=== PATIENT | female | born 1975 | race Caucasian/White ===

== ENCOUNTER 2025-05-09 09:37 | Emergency (ER) | payer OTHER ==
[2025-05-09 10:00] VITALS: TEMP 97.8
--- NOTE | 2025-05-09 10:03 | ERPHSYRPT ---
- History of Present Illness Time Seen by Provider: 05/09/25 09:50 Historian: patient Exam Limitations: no limitations Physician History: This is an obese 49-year-old white female patient presents to the emergency department secondary to chest pain, shortness of breath, cough and leg pain. In October 2020, patient was diagnosed with COVID induced DVTs. She had been on Eliquis until October 2024 when she ran out of her medication. Patient did not live in this area. Patient had financial difficulties as well and lost her health insurance. Patient moved to this area in October 2024, still in financial difficulties and ultimately received health insurance in March 2025. Will she was going to go to her primary care provider in the [place] area, however, her car is not working and the weather is going to turn bad. So she came to the emergency department. Timing/Duration: week(s) (2) Quality: aching Location: substernal, central Chest Pain Radiation: no radiation Severity of Pain-Max: mild Severity of Pain-Current: mild Associated Symptoms: shortness of breath, cough, No nausea, No vomiting, No abdominal pain Nitro Today/Relief: no nitro taken today Aspirin Treatment Today: 81 mg x 4, provided by ED Allergies/Adverse Reactions: No Known Drug Allergies Allergy (Unverified 05/09/25 09:38) Home Medications: Albuterol 8 gm Mdi Hfa [Ventolin Hfa MDI] 8 gm IH Q6HPRN PRN 05/09/25 [History] Cetirizine HCl [Zyrtec] 1 ea DAILY 05/09/25 [History] Travel Risk - International Travel Have you traveled outside of the country in past 3 weeks: No - Emerging Infectious Disease Are you exhibiting symptoms associated with any current EIDs: Yes Symptoms: Cough: New Onset, Shortness of Breath - Review of Systems Constitutional: No Symptoms Eyes: No Symptoms Ears, Nose, & Throat: No Symptoms Respiratory: Cough, Dyspnea on Exertion (CARTER) Cardiac: Chest Pain Abdominal/Gastrointestinal: No Symptoms Genitourinary Symptoms: No Symptoms Musculoskeletal: No Symptoms Skin: No Symptoms Neurological: No Symptoms Psychological: No Symptoms Endocrine: No Symptoms Hematologic/Lymphatic: No Symptoms Immunological/Allergic: No Symptoms All Other Systems: Reviewed and Negative - Past Medical History Pertinent Past Medical History: Yes - Nursing Vital Signs Nursing Vital Signs: Initial Vital Signs Pulse Rate 64 05/09/25 09:44 Respiratory Rate 22 05/09/25 09:44 Blood Pressure 119/64 05/09/25 09:44 O2 Sat by Pulse Oximetry 95 05/09/25 09:44 Pain Scale Pain Intensity 8 - Physical Exam General Appearance: no apparent distress, alert, anxiety, obese Eye Exam: PERRL/EOMI, eyes nml inspection Ears, Nose, Throat Exam: normal ENT inspection, moist mucous membranes Neck Exam: normal inspection, non-tender, supple, full range of motion Respiratory Exam: normal breath sounds, lungs clear, airway intact, No chest tenderness, No respiratory distress Cardiovascular Exam: regular rate/rhythm, normal heart sounds, normal peripheral pulses Gastrointestinal/Abdomen Exam: soft, normal bowel sounds, No tenderness Pelvic Exam: not done Rectal Exam: not done Back Exam: normal inspection, normal range of motion, No CVA tenderness, No vertebral tenderness Extremity Exam: normal inspection, normal range of motion, pelvis stable Neurologic Exam: alert, oriented x 3, cooperative, fire alarm inspector II-XII nml as tested, nml cerebellar function, nml station & gait, sensation nml Skin Exam: normal color, warm, dry Lymphatic Exam: No adenopathy SpO2 Interpretation: normal O2 Delivery: Room Air - Course Nursing assessment & vital signs reviewed: Yes EKG Interpreted by Me: RATE (70), Sinus Rhythm, NORMAL AXIS, NORMAL INTERVALS, NORMAL QRS, Other (CBC is 450. No acute ischemia on this twelve-lead EKG.) Ordered Tests: Active Orders 24 hr Category Date Time Status EKG-ER Only STAT Care 05/09/25 09:56 Completed IV Insertion STAT Care 05/09/25 09:56 Active Pulse Oximetry (ED) STAT Care 05/09/25 09:56 Active CHEST WITH CONTRAST [CT] Stat Exams 05/09/25 09:55 Completed VENOUS BILATERAL EXTREMITY [US] Stat Exams 05/09/25 09:57 Completed BLOOD CULTURE Stat Lab 05/09/25 10:10 Ordered CBC W DIFF Stat Lab 05/09/25 10:00 Completed CMP Stat Lab 05/09/25 10:00 Completed Lactic Acid Stat Lab 05/09/25 10:20 Completed MAGNESIUM Stat Lab 05/09/25 10:00 Completed NT PRO BNPII Stat Lab 05/09/25 10:00 Completed TROPONIN Q4H Lab 05/09/25 10:00 Completed TROPONIN Q4H Lab 05/09/25 14:00 Ordered TROPONIN Q4H Lab 05/09/25 18:00 Ordered Medication Summary Generic Name Dose Route Start Last Admin Trade Name Domenico PRN Reason Stop Dose Admin Sodium Chloride 1,000 mls @ 100 mls/hr 05/09/25 10:00 05/09/25 10:13 Sodium Chloride 0.9% 1000 Ml IV 06/08/25 09:59 100 mls/hr .Q10H ARIAN Administration Lab/Rad Data: Laboratory Result Diagrams 05/09/25 10:00 05/09/25 10:00 Laboratory Results 05/09/25 05/09/25 05/09/25 Range/Units 10:20 10:10 10:00 WBC (3.98-10.04) x10^3/uL RBC (3.93-5.22) x10^6/uL Hgb (11.2-15.7) g/dL Hct (34.1-44.9) % MCV (79.4-94.8) fL MCH (25.6-32.2) pg MCHC (32.2-35.5) g/dL RDW (11.7-14.4) % Plt Count (182-369) x10^3/uL MPV (9.4-12.3) fL Gran % (34.0-71.1) % Immature Gran % (Auto) (0.001-0.429) % Nucleat RBC Rel Count (0.00-0.2) % Eos # (Auto) (0.04-0.36) x10^3/uL Immature Gran # (Auto) (0.001-0.031) x10^3u/L Absolute Lymphs (auto) (1.18-3.74) x10^3/uL Absolute Monos (auto) (0.24-0.86) x10^3/uL Absolute Nucleated RBC (0.00-0.012) x10^3u/L Lymphocytes % (19.3-51.7) % Monocytes % (4.7-12.5) % Eosinophils % (0.7-5.8) % Basophils % (0.1-1.2) % Absolute Granulocytes (1.56-6.13) x10^3/uL Basophils # (0.01-0.08) x10^3/uL Sodium (135-145) mmol/L Potassium (3.5-5.1) mmol/L Chloride (98-107) mmol/L Carbon Dioxide (22-30) mmol/L Anion Gap (5-15) MEQ/L BUN (7-17) mg/dL Creatinine (0.52-1.04) mg/dL Estimated GFR ML/MIN Glucose (74-106) mg/dL Lactic Acid 1.8 (0.4-2.0) Calcium (8.4-10.2) mg/dL Magnesium (1.6-2.3) mg/dL Total Bilirubin (0.2-1.3) mg/dL AST (14-36) U/L ALT (0-35) U/L Alkaline Phosphatase (38-126) U/L Troponin I < 0.012 (0.000-0.033) ng/mL NT-Pro-B Natriuret Pep (<300) pg/mL Serum Total Protein (6.3-8.2) g/dL Albumin (3.5-5.0) g/dL Influenza Type A Ag NEGATIVE (NEGATIVE) Influenza Type B Ag NEGATIVE (NEGATIVE) RSV (PCR) NEGATIVE (NEGATIVE) SARS-CoV-2 (PCR) NEGATIVE (NEGATIVE) 05/09/25 05/09/25 Range/Units 10:00 10:00 WBC 8.1 (3.98-10.04) x10^3/uL RBC 4.72 (3.93-5.22) x10^6/uL Hgb 13.4 (11.2-15.7) g/dL Hct 40.9 (34.1-44.9) % MCV 86.7 (79.4-94.8) fL MCH 28.4 (25.6-32.2) pg MCHC 32.8 (32.2-35.5) g/dL RDW 13.4 (11.7-14.4) % Plt Count 245 (182-369) x10^3/uL MPV 11.1 (9.4-12.3) fL Gran % 60.1 (34.0-71.1) % Immature Gran % (Auto) 0.2 (0.001-0.429) % Nucleat RBC Rel Count 0.0 (0.00-0.2) % Eos # (Auto) 0.23 (0.04-0.36) x10^3/uL Immature Gran # (Auto) 0.02 (0.001-0.031) x10^3u/L Absolute Lymphs (auto) 2.31 (1.18-3.74) x10^3/uL Absolute Monos (auto) 0.64 (0.24-0.86) x10^3/uL Absolute Nucleated RBC 0.00 (0.00-0.012) x10^3u/L Lymphocytes % 28.4 (19.3-51.7) % Monocytes % 7.9 (4.7-12.5) % Eosinophils % 2.8 (0.7-5.8) % Basophils % 0.6 (0.1-1.2) % Absolute Granulocytes 4.88 (1.56-6.13) x10^3/uL Basophils # 0.05 (0.01-0.08) x10^3/uL Sodium 136 (135-145) mmol/L Potassium 4.2 (3.5-5.1) mmol/L Chloride 103 (98-107) mmol/L Carbon Dioxide 23 (22-30) mmol/L Anion Gap 13.7 (5-15) MEQ/L BUN 12 (7-17) mg/dL Creatinine 0.70 (0.52-1.04) mg/dL Estimated GFR 104.7 ML/MIN Glucose 99 (74-106) mg/dL Lactic Acid (0.4-2.0) Calcium 9.3 (8.4-10.2) mg/dL Magnesium 1.9 (1.6-2.3) mg/dL Total Bilirubin 0.60 (0.2-1.3) mg/dL AST 24 (14-36) U/L ALT 18 (0-35) U/L Alkaline Phosphatase 83 (38-126) U/L Troponin I (0.000-0.033) ng/mL NT-Pro-B Natriuret Pep < 20.0 (<300) pg/mL Serum Total Protein 7.6 (6.3-8.2) g/dL Albumin 4.3 (3.5-5.0) g/dL Influenza Type A Ag (NEGATIVE) Influenza Type B Ag (NEGATIVE) RSV (PCR) (NEGATIVE) SARS-CoV-2 (PCR) (NEGATIVE) - Progress Progress: improved, re-examined Air Movement: good Progress Note: 05/09/25 10:03 My medical decision making and the assignment of moderate to high complexity of this patient's medical issue today is based on review of the patient's past medical history, review the patient's medication list, reviewed patient drug allergy list, history present illness and physical findings on examination. They workup in this patient includes placement of intravenous line, infusion of low rate crystalloid, CBC, CMP, magnesium level, troponin level, BNP level, twelve-lead EKG, viral swabs, bilateral lower extremity venous Doppler, CT scan of the chest with contrast. Differential diagnose include but is not limited to viral illness, pulmonary infiltrate, pulmonary embolus, myocardial infarction, electrolyte abnormalities, arrhythmia, DVT 05/09/25 11:00 Scale Tank Operator/technologist reported to me the preliminary report of the patient's bilateral lower extremity venous Doppler study. There is no evidence of DVTs in either lower extremity 05/09/25 11:01 I interpreted the patient's laboratory data results. Based on laboratory data results there are no acute, emergent medical issues. 05/09/25 12:[address] scan of the chest with contrast was interpreted by the radiologist and I reviewed the impression. The impression states negative for pulmonary embolus. Incidental cardiomegaly with old granulomatous disease. Remaining CT scan of the chest with contrast normal Blood Culture(s) Obtained: Yes Counseled pt/family regarding: lab results, diagnosis, need for follow-up, rad results Medical Desision Making - Diagnostic Testing Diagnostic test were ordered, analyzed, and reviewed by me: Yes Radiological Interpretation: Reviewed by me, Teleradiologist Report - Risk of complications Low Risk: Low risk of morbidity from additional dx testing or treatment - Departure Departure Disposition: Home Clinical Impression: Nonspecific chest pain Condition: Stable Critical Care Time: No Referrals: DILCIA MORSE [Primary Care Provider, [facility]] - Follow up/PCP as directed Additional Instructions: Drink plain fluids. Take all your medications as prescribed. Call your primary care provider today, to make arrangements for follow-up appointment to be seen in the next 3 to 5 days.
[2025-05-09 10:21] LABS: BASOPHIL % 0.6 % (0.1-1.2); Basophil (Absolute #) 0.05 x10^3/uL (0.01-0.08); Eosinophil (Absolute #) 0.23 x10^3/uL (0.04-0.36); Hematocrit 40.9 % (34.1-44.9); Hemoglobin 13.4 g/dL (11.2-15.7); IMMATURE GRAN # 0.02 x10^3u/L (0.001-0.031); IMMATURE GRAN % 0.2 % (0.001-0.429); Lymphocyte (Absolute #) 2.31 x10^3/uL (1.18-3.74); Mean Corpuscular Hemoglobin 28.4 pg (25.6-32.2); Mean Corpuscular Hgb Concent. 32.8 g/dL (32.2-35.5); Monocyte (Absolute #) 0.64 x10^3/uL (0.24-0.86); NUCLEATED RBC # 0.00 x10^3u/L (0.00-0.012); NUCLEATED RBC % 0.0 % (0.00-0.2); Platelet Count 245 x10^3/uL (182-369); Red Blood Count 4.72 x10^6/uL (3.93-5.22); White Blood Count 8.1 x10^3/uL (3.98-10.04)
[2025-05-09 10:45] LABS: Calcium 9.3 mg/dL (8.4-10.2); Carbon Dioxide 23 mmol/L (22-30); Creatinine 1 0.70 mg/dL (0.52-1.04); EST GLOMERULAR FILTRATION RATE 104.7 ML/MIN; Glucose 99 mg/dL (74-106); NT PRO BNPII < 20.0 pg/mL (<300); SGOT/AST 24 U/L (14-36); SGPT/ALT 18 U/L (0-35); Total Protein 7.6 g/dL (6.3-8.2)
[2025-05-09 10:46] LABS: Potassium 4.2 mmol/L (3.5-5.1)
[2025-05-09 10:58] LABS: INFLUENZA A NEGATIVE (NEGATIVE); INFLUENZA B NEGATIVE (NEGATIVE); RESPIRATORY SYNCTIAL VIRUS NEGATIVE (NEGATIVE); SARS-CoV-2 Xpert Express NEGATIVE (NEGATIVE)
--- NOTE | 2025-05-09 11:49 | XRAY ---
Indication: Bilateral leg pain. Two-dimensional sonogram and color Doppler imaging major venous vessels left and right leg performed. Comparison: None No thrombus seen in the examined deep venous vessels left and right leg including greater saphenous vein. Veins demonstrate normal compressibility. Venous waveforms are normal with and without augmentation. Impression: Left and right leg negative for DVT.
[2025-05-09 12:07] VITALS: O2SAT 95
--- NOTE | 2025-05-09 12:17 | XRAY ---
Indication: Cough. Short of breath. Multiple contiguous axial images obtained through the chest using 80 cc Isovue 370 contrast and PE protocol. Comparison: None Good opacification pulmonary arteries to include lobar and segmental branches. No pulmonary embolus. Heart is enlarged. Aorta is normal in course and caliber. Small mediastinal calcified node. No pathologic mediastinal/hilar lymphadenopathy. Lungs demonstrates minimal bilateral dependent atelectasis. No suspicious pulmonary mass/nodule, infiltrate, or effusion. Bony thorax intact. Limited upper abdomen including adrenal glands are unremarkable. Impression: Negative pulmonary embolus. Incidental cardiomegaly and old granulomatous disease. Remaining CT chest with contrast normal.
[2025-05-09 12:47] VITALS: BP 100/55; PULSE 61; RESP 22
== END 2025-05-09 12:54 | disposition home or self-care (01) ==
LOC: ED 09:37
DX: R07.9 Chest pain, unspecified (principal); R06.02 Shortness of breath; R05.9 Cough, unspecified; Z79.899 Other long term (current) drug therapy; Z59.82 Transportation insecurity